=== PATIENT | male | born 1990 | race African-American/Black ===

== ENCOUNTER 2023-02-14 09:39 | Inpatient (IN) | payer OTHER ==
[2023-02-14 10:20] VITALS: BMI 18.8
[2023-02-14] MEDS ORDERED: BENZOCAINE/MENTHOL (CHLORASEPTIC ) LOZENGE MM PRN (12:14)
[2023-02-14] MEDS ORDERED: NALOXONE HCL (KLOXXADO) 8 MG SPRAY NS PRN (12:14)
[2023-02-14] MEDS ORDERED: ACETAMINOPHEN 325 MG TABLET (FP) PO PRN (12:14)
[2023-02-14] MEDS ORDERED: NALOXONE HCL 0.4 MG/ML VIAL IM PRN (12:14)
[2023-02-14] MEDS ORDERED: BISMUTH SUBSALICYLATE 524 MG/30 ML PO PRN (12:14)
[2023-02-14] MEDS ORDERED: guaiFENesin 600 MG TABLET.ER (FP) PO PRN (12:14)
[2023-02-14] MEDS ORDERED: LOPERAMIDE HCL 2 MG CAPSULE PO PRN (12:14)
[2023-02-14] MEDS ORDERED: MAGNESIUM HYDROX 2400MG/30ML ORAL SUSPENSION 30 ML CUP PO PRN (12:14)
[2023-02-14] MEDS ORDERED: METHOCARBAMOL 500 MG TABLET PO PRN (12:14)
[2023-02-14] MEDS ORDERED: ONDANSETRON *ODT* 4 MG TABLET SL PRN (12:14)
[2023-02-14] MEDS ORDERED: MAG HYDROX/AL HYDROX/SIMETH 30 ML UNIT-DOSE CUP PO PRN (12:14)
[2023-02-14] MEDS ORDERED: POLYETHYLENE GLYCOL (HEALTHYLAX) 3350 17 GM PACKET PO PRN (12:14)
[2023-02-14] MEDS ORDERED: IBUPROFEN 600 MG TABLET (FP) PO PRN (12:14)
[2023-02-14] MEDS ORDERED: IBUPROFEN 400 MG TABLET (FP) PO PRN (12:14)
[2023-02-14] MEDS ORDERED: DICYCLOMINE HCL 10 MG CAPSULE PO PRN (12:14)
[2023-02-14] MEDS ORDERED: BENZONATATE 200 MG CAPSULE PO PRN (12:14)
[2023-02-14] MEDS ORDERED: NICOTINE POLACRILEX 2 MG GUM BUC PRN (12:14)
[2023-02-14] MEDS: MELATONIN 5 MG TABLETS PO SCH (22:33)
[2023-02-14] MEDS: THIAMINE HCL 100 MG TABLET (FP) PO SCH (22:33)
[2023-02-15] MEDS: PRENATAL VITAMINS W/ FOLIC ACID TABLET (FP) PO SCH (10:44)
[2023-02-15] MEDS: NICOTINE 14 MG/24 HOURS TOPICAL PATCH TD SCH (10:44)
[2023-02-15 11:34] LABS: HEMATOCRIT 37.8 % (35.4-49); HEMOGLOBIN 12.4 GM/dL (11.7-16.9); MCH 28.4 pg (25.7-33.7); MCHC 32.9 g/dl (32.0-35.9); MEAN CELL VOLUME 86.5 fl (80-96); MEAN PLT VOLUME 8.1 fl (7.5-11.1); PLATELET COUNT 261 10^3/uL (134-434); RBC 4.37 M/mm3 (4.00-5.60); RDW 14.2 % (11.9-15.9); WHITE BLOOD COUNT 7.1 K/mm3 (4.0-10.0)
[2023-02-15 11:45] LABS: POTASSIUM 4.3 mmol/L (3.5-5.1)
[2023-02-15 11:49] LABS: CALCIUM 9.3 mg/dL (8.5-10.1)
[2023-02-15 11:50] LABS: ALBUMIN 3.3 g/dl (3.4-5.0); BLOOD UREA NITROGEN 10.8 mg/dL (7-18)
[2023-02-15 11:53] LABS: CREATININE 0.9 mg/dL (0.55-1.3)
[2023-02-15 11:54] LABS: BILIRUBIN,TOTAL 0.2 mg/dL (0.2-1)
[2023-02-15 11:55] LABS: TOT PROT 6.1 g/dl (6.4-8.2)
[2023-02-15] MEDS: MELATONIN 5 MG TABLETS PO SCH (22:51)
[2023-02-15] MEDS: THIAMINE HCL 100 MG TABLET (FP) PO SCH (22:52)
[2023-02-16 06:25] VITALS: RESP 16
[2023-02-16 09:10] VITALS: BP 100/66; PULSE 65; TEMP 97.9
[2023-02-16] MEDS: PRENATAL VITAMINS W/ FOLIC ACID TABLET (FP) PO SCH (10:45)
[2023-02-16] MEDS: NICOTINE 14 MG/24 HOURS TOPICAL PATCH TD SCH (10:45)
== END 2023-02-16 13:07 | disposition other institution (70) | DRG 773 ==
LOC: YASAS 09:39 → Y3N 12:32
PROVIDERS: ADMIT Allergy & Immunology; ATTEND Surgery
PROC: HZ2ZZZZ Detoxification Services for Substance Abuse Treatment (ICD-10-PCS; principal; 2023-02-14)
DX: F11.23 Opioid dependence with withdrawal (principal); F12.20 Cannabis dependence, uncomplicated; F17.210 Nicotine dependence, cigarettes, uncomplicated
CPT/HCPCS: 36415; 80053; 85027; 86780; 87635; 93005; 93010